=== PATIENT | female | born 1970 | race African-American/Black ===

== ENCOUNTER 2018-01-24 07:11 | Emergency (ER) | payer OTHER ==
[~2018-01-24] VITALS: Ht 165.1 cm; Wt 117.9 kg
[~2018-01-24 07:11] MED LIST: FLEXERIL PO; LIORESAL 10 MG10 MG PO; PERCOCET 7.5-31 EACH PO; TRIAMTERENE-HC1 EAC2
[2018-01-24] MEDS ORDERED: HYDROCHLOROTH12.5 M1 PO (07:20)
[2018-01-24] MEDS ORDERED: NORCO 5-325 TA1 EACH PO (08:30)
[2018-01-24 08:35] VITALS: BP 148/89
== END 2018-01-24 08:36 | disposition home or self-care (01) ==
LOC: M.ERS 07:11
DX: S80.02XA Contusion of left knee, initial encounter (principal); S80.01XA Contusion of right knee, initial encounter; S40.012A Contusion of left shoulder, initial encounter; S40.011A Contusion of right shoulder, initial encounter; Z88.0 Allergy status to penicillin; W10.8XXA Fall (on) (from) other stairs and steps, initial encounter; Y93.89 Activity, other specified; Y92.89 Other specified places as the place of occurrence of the external cause; Y99.8 Other external cause status

== ENCOUNTER 2020-10-20 14:13 | Emergency (ER) | payer OTHER ==
[~2020-10-20] VITALS: Ht 167.6 cm; Wt 99.8 kg
[~2020-10-20 14:13] MED LIST changes: +HYDROCHLOROTH12.5 M1 PO; +NORCO 5-325 TA1 EACH PO
[2020-10-20] MEDS ORDERED: TRIAMTERENE/HCT1 CA1 PO (14:22)
[2020-10-20] MEDS ORDERED: LOMAIRA8 MG PO (14:22)
[2020-10-20] MEDS ORDERED: NAPROSYN500 M1 PO (14:22)
[2020-10-20] MEDS ORDERED: MUSCLE RELAXER (14:22)
[2020-10-20] MEDS ORDERED: NORCO5 PO (14:41)
[2020-10-20] MEDS ORDERED: MEDROLDOSEPACK PO (14:41)
[2020-10-20 14:49] VITALS: BP 148/93
== END 2020-10-20 14:50 | disposition home or self-care (01) ==
LOC: M.ERS 14:13
DX: S16.1XXA Strain of muscle, fascia and tendon at neck level, initial encounter (principal); Z98.890 Other specified postprocedural states; Z88.0 Allergy status to penicillin; X50.9XXA Other and unspecified overexertion or strenuous movements or postures, initial encounter; Y93.89 Activity, other specified; Y92.89 Other specified places as the place of occurrence of the external cause; Y99.8 Other external cause status

== ENCOUNTER 2020-10-31 13:59 | Emergency (ER) | payer OTHER ==
[~2020-10-31] VITALS: Ht 165.1 cm; Wt 113.4 kg
[~2020-10-31 13:59] MED LIST changes: +LOMAIRA8 MG PO; +MEDROLDOSEPACK PO; +MUSCLE RELAXER; +NAPROSYN500 M1 PO; +NORCO5 PO; +TRIAMTERENE/HCT1 CA1 PO
[2020-10-31] MEDS ORDERED: FLEXERIL PO (14:43)
[2020-10-31] MEDS ORDERED: MEDROLDOSEPACK PO (14:43)
[2020-10-31 14:54] VITALS: BP 122/89
== END 2020-10-31 14:56 | disposition home or self-care (01) ==
LOC: M.ERS 13:59
DX: M54.81 Occipital neuralgia (principal); Z88.0 Allergy status to penicillin; Z98.890 Other specified postprocedural states